=== PATIENT | male | born 1955 | race Caucasian/White ===

== ENCOUNTER 2021-08-02 00:38 | Emergency (ER) | payer MEDICARE, OTHER, SELFPAY ==
--- NOTE | ~2021-08-02 | CT_ITS ---
EXAMINATION: CT brain wo con EXAM DATE: 08/02/2021 03:04 INDICATION: Weakness. TECHNIQUE: Spiral CT of the head was performed without contrast. Axial, coronal and sagittal images were reviewed. The dose-length product (DLP) for this examination was 681.00 mGy-cm. The exposure w as tailored according to patient size, and iterative reconstruction (ASIR) was used as additional dos e reduction technique. There is no prior study for comparison. FINDINGS: There is no acute intraparenchymal hemorrhage. No evidence of intraparenchymal brain mass lesion. No evidence of acute infarction. Please note that initial head CT has limited sensitivity f or small or acute infarctions. There is an old right basal ganglia lacunar infarction extending to t he lateral ventricle. There is punctate old left thalamic lacunar infarction. There are old bilateral pontine lacunar infarctions. There is mild periventricular and subcortical hypodensity, nonspecific but probably related to small vessel ischemic disease. There is mild to moderate prominence of the sulci and ventricles related to cerebral atrophy. There is intracranial carotid arteriosclerosis. There are no extra-axial collections. There is no mass effect or midline shift. Patient has had zen ateral ocular lens surgery. Soft tissue is unremarkable. The visualized sinuses and mastoid air javy ls are well aerated. IMPRESSION: 1. Old small infarctions. 2. Chronic age related findings. Reviewed, dictated and finalized at location A. [employer]OR [employer]
--- NOTE | ~2021-08-02 | XR_ITS ---
EXAMINATION: XR chest 1V portable EXAM DATE: 08/02/2021 03:04 INDICATION: cough TECHNIQUE: Portable AP frontal chest x-ray was obtained. There is no prior study for comparison. FINDINGS: The lungs are clear. There are no pleural effusions. Cardiac silhouette is prominent but magnified on this AP technique. There is no pneumothorax suspected. The bones and soft tissues are unremarkable. IMPRESSION: No acute cardiopulmonary findings. Reviewed, dictated and finalized at location A. ICAL PUMPER
--- NOTE | 2021-08-02 00:43 | ED.WEAKNESS ---
HPI - Weakness General Chief complaint: Weakness Stated complaint: WEAKNESS Time Seen by Provider: 08/02/21 00:43 Source: patient History of Present Illness HPI Narrative: 66-year-old male with ex smoking, alcoholism, marijuana use, history of hypertension, anxiety /depression, dyslipidemia, CVA with left hemiplegia, dysphagia secondary to stroke, COVID vaccinated, ANGIE on CPAP presents to the ER for -- weakness since this afternoon -- cough and cold. the patient has chronic cough but his current cough appears to be different. It is nonproductive. -- to be evaluated for possible COVID infection as is and son are noted to have COVID infection. MD Complaint: generalized weakness Onset (ago): hour(s) ( 12 hours) Duration: constant Location: generalized Migration: none Severity: moderate Relieving factors: none Exacerbating factors: none Related Data Home Medications Medication Instructions Recorded Confirmed atorvastatin 40 mg PO DAILY 08/02/21 08/02/21 bupropion HCl 300 mg PO DAILY 08/02/21 08/02/21 clopidogrel 75 mg PO DAILY 08/02/21 08/02/21 escitalopram oxalate 20 mg PO DAILY 08/02/21 08/02/21 fenofibrate 160 mg PO DAILY 08/02/21 08/02/21 lisinopril 20 mg PO DAILY 08/02/21 08/02/21 Allergies Allergy/AdvReac Type Severity Reaction Status Date / Time No Known Allergies Allergy Verified 08/02/21 00:51 Review of Systems Review of Systems: All systems reviewed & are unremarkable except as noted in HPI and below Constitutional: Constitutional: Reports as per HPI and Reports no additional constitutional complaints Eyes: Eyes: Reports as per HPI and Reports no additional eye complaints ENT: Reports system reviewed and no additional complaints, except as documented Cardiovascular: Cardiovascular: Reports as per HPI and Reports no additional cardiovascular complaints Respiratory: Respiratory: Reports cough and Reports wheezing Gastrointestinal: Gastrointestinal: Reports as per HPI and Reports no additional gastrointestinal complaints Genitourinary: Genitourinary: Reports no additional male genitourinary complaints Musculoskeletal: Musculoskeletal: Reports no additional musculoskeletal complaints Integumentary/Breasts: Skin/Breast: Reports system reviewed and no additional complaints, except as docu Neurologic: Comments: history of left hemiplegia contractures of left upper and lower extremities Psychiatric: Psychiatric: Reports no additional psychiatric complaints Endocrine: Endocrine: Reports no additional endocrine complaints Hematologic/Lymphatic: Hematologic/Lymphatic: Reports no additional hematologic/lymphatic complaints Allergic/Immunologic: Allergic/Immunologic: Reports no additional allergic/immunologic complaints [facility] Past Medical History Medical History (Updated 08/02/21 @ 03:26 by Manfred Curz MD) CVA (cerebral vascular accident) Dyslipidemia Hypertension Left hemiplegia Social History Social History (Updated 08/02/21 @ 01:04 by Manfred Cruz MD) Social History: ex-smoker. Regular alcohol use. Marijuana use. Exam Const: General: no acute distress Limitations: altered mental status HENMT: Head: normal to inspection Ears: external ears normal ( Ears the full of wax.) Mouth: Yes moist mucous membranes Eyes: Conjunctivae: conjunctivae normal Pupils: Equal, round and reactive pupils present EOM: EOMs intact bilaterally Neck: Neck: normal visual inspection and no lymphadenopathy Other: bilateral parotid swelling. Chest: Chest palpation & inspection: normal inspection of the chest Resp: Auscultation: wheezes and diminished lung sounds Cardio: Rate: regular rate Rhythm: regular rhythm GI: GI Palp: Yes Soft to palpation : General: Yes no CVA tenderness Testes: Testes normal Skin: General skin exam: normal color Rashes: no rashes Neuro: General: no meningeal signs Other: Left hemiplegia. Extrem: General: normal to inspecti
--- NOTE | 2021-08-02 00:46 | ECG_ITS ---
Measurements Intervals [place] Rate: 81 P: -3 MN: 154 QRS: -24 QRSD: 138 T: 20 QT: 392 QTc: 456 Interpretive Statements SINUS RHYTHM RIGHT BUNDLE BRANCH BLOCK BASELINE ARTIFACT- I, II, III, AVR, AVL, AVF, V1-V6 ABNORMAL ECG Electronically Signed On 08-02-2021 8:04:49 ANALYTICAL DATA SCIENTIST by Kapil Bruno D.O.
[2021-08-02 01:04] VITALS: BP 130/68; PULSE 82; RESP 17; TEMP 37.2; O2SAT 97
[2021-08-02 01:06] LABS: Hematocrit 38.8 % (37.0-46.0); Hemoglobin 12.4 g/dL (12.4-15.3); Mean Corpuscular Hemoglobin 30.9 pg (27.0-31.0); Mean Corpuscular Volume 96.8 fL (78.0-102.0); Mean Platelet Volume 10.9 fl (8.7-11.0); Platelet Count Result 295 K/mm3 (150-420); Red Blood Count 4.01 M/mm3 (4.70-6.10); Red Cell Distribution Width 13.6 % (11.6-14.4); White Blood Count 5.8 K/mm3 (4.8-10.8)
[2021-08-02 01:23] LABS: INR 1.1; Partial Thromboplastin Time 28.8 SEC (23.90-30.70); Prothrombin Time 11.2 Seconds (9.50-12.10)
[2021-08-02 01:24] LABS: D Dimer 0.35 mg/L (0.19-0.50)
[2021-08-02 01:26] LABS: Total Cells Counted 100
[2021-08-02 01:27] LABS: Band Neutrophils Percent 0 % (0-6); Basophils Absolute Manual 0.11 K/mm3 (0-0.1); Basophils Percent Manual 2 % (0-1); Eosinophils Absolute Manual 0.05 K/mm3 (0.02-0.5); Eosinophils Percent Manual 1 % (1-6); Lymphocytes Absolute Manual 0.58 K/mm3 (1.1-4.5); Lymphocytes Percent Manual 10 % (18-44); Monocytes Absolute Manual 0.87 K/mm3 (0.1-0.90); Monocytes Percent Manual 15 % (3-9); Neutrophils Absolute Manual 4.17 K/mm3 (1.3-6.7); Neutrophils Percent Manual 72 % (46-73); Platelet Estimate Adequate (Adequate)
[2021-08-02 01:31] LABS: Alanine Aminotransferase 26 U/L (16-63); Albumin Level 3.3 g/dL (3.4-5.0); Alkaline Phosphatase 48 U/L (46-116); Anion Gap 5 mmol/L (8-16); Aspartate Amino Transferase 25 U/L (15-37); Bilirubin,Total 0.3 mg/dL (0.00-1.00); Blood Urea Nitrogen 19 mg/dL (7-18); Calcium 8.2 mg/dL (8.5-10.1); Carbon Dioxide 29 mmol/L (21-32); Chloride 102 mmol/L (98-108); Estimated CRCL calculation 52 ml/min; Estimated Glomerular Filt Rate 45; Glucose 104 mg/dL (70-99); NT Pro B Type Natriuretic Pept 169 pg/mL (0-125); Osmolality Calculated 284 mOsm/kg (285-295); Potassium 4.2 mmol/L (3.5-5.1); Sodium 136 mmol/L (136-145); Total Protein 6.6 g/dL (6.4-8.2)
[2021-08-02 01:34] LABS: Lactic Acid Reflex 1.1 mmol/L (0.4-2.0)
[2021-08-02 01:35] LABS: Ethanol 7 mg/dL (0-6)
[2021-08-02 01:35] LABS: Lipase 135 U/L (73-393); Troponin I 12.8 ng/L (0.00-60.4)
[2021-08-02] MEDS: methylPREDNISolone SOD SUCC 125 MG VIAL IM (01:36)
[2021-08-02] MEDS: ALBUTEROL SULFATE (*SP) INHALER 2 PUFF INHALATION (01:37)
[2021-08-02 01:39] VITALS: PULSE 97; RESP 19; O2SAT 96
[2021-08-02 01:45] VITALS: PULSE 84; RESP 18; O2SAT 96
[2021-08-02 01:45] LABS: SARS-CoV-2 RNA PCR Positive (Negative)
--- NOTE | 2021-08-02 03:22 | PC.NURSE ---
contacted pt's in order to inform her that the patient is being discharge and that she can pick him up.
[2021-08-02 03:46] VITALS: BP 124/78; PULSE 82; RESP 19; TEMP 36.6; O2SAT 93
== END 2021-08-02 04:09 | disposition home or self-care (01) ==
PROVIDERS: Emergency Provider Internal Medicine Critical Care Medicine; PCP Physician Assistant
DX: U07.1 COVID-19 (principal); N18.9 Chronic kidney disease, unspecified; J98.01 Acute bronchospasm; Z86.73 Personal history of transient ischemic attack (TIA), and cerebral infarction without residual deficits; Z79.899 Other long term (current) drug therapy; E78.5 Hyperlipidemia, unspecified; I10 Essential (primary) hypertension; Z87.891 Personal history of nicotine dependence
CPT/HCPCS: 36415; 70450; 71045; 80053; 80307; 83605; 83690; 83880; 84484; 85025; 85380; 85610; 85730; 93005; 96372; 99284; A9270; C9803; J2930; U0003; U0005

== ENCOUNTER 2021-08-21 14:10 | Emergency (ER) | payer MEDICARE, OTHER, SELFPAY ==
--- NOTE | ~2021-08-21 | CT_ITS ---
EXAMINATION: CT brain wo con DATE: 08/21/2021 15:04 INDICATION: Head injury TECHNIQUE: Computed tomography (CT) of the head was performed without intravenous contrast. Sagittal and coronal reconstructions were performed. The mA was adjusted according to patient size. Iterative reconstruction technique was employed. The dose-length product was 681.00 mGy-cm. COMPARISON: head CT dated 08/02/2021 FINDINGS: No fracture. No interval change in a few old lacunar infarcts, the largest in the anterior right basa l ganglia involving the lentiform nucleus, anterior limb of the internal capsule and head of the caud ate nucleus. Associated mild ex vacuo dilation of the anterior horn of the right lateral ventricle. T he additional smaller lacunar infarcts are at the left thalamus and bilateral anuj. No acute intracra nial hemorrhage, acute infarction or abnormal extra axial fluid collection. There is mild scattered w gypsy matter hypoattenuation consistent with chronic small vessel ischemic disease. Symmetric prominen ce of the sulci and ventricles consistent with mild to moderate age-appropriate diffuse cerebral volu me loss. No mass/mass effect. Changes of right intraocular lens replacement. The orbits are normal. U nchanged trace right mastoid effusion. IMPRESSION: 1. No fracture or acute intracranial process. 2. Stable appearance of small old lacunar infarcts at the right basal ganglia, left thalamus and bila teral anuj. 3. Age-related changes including mild to moderate diffuse volume loss and mild scattered white matter hypoattenuation consistent with chronic small vessel ischemic disease. Reviewed, dictated and finalized at location A. RNMENT AFFAIRS MANAGER IMPRESSION: 1. No fracture or acute intracranial process. 2. Stable appearance of small old lacunar infarcts at the right basal ganglia, left thalamus and bilateral anuj. 3. Age-related changes including mild to moderate diffuse volume loss and mild scattered white matter hypoattenuation consistent with chronic small vessel isc hemic disease.
--- NOTE | ~2021-08-21 | XR_ITS ---
EXAMINATION: XR forearm LT 2V DATE: 08/21/2021 15:20 INDICATION: Left forearm injury post fall with abrasion and swelling TECHNIQUE: AP an lateral views of the left forearm were obtained. COMPARISON: none FINDINGS: Posterior soft tissue swelling at the mid left forearm. Bone alignment is normal. No fracture. Mild o steoarthritis at the left wrist and elbow. Osteopenia. IMPRESSION: 1. 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 No acute osseous abnormality. Reviewed, dictated and finalized at location A. PIGMENT REDUCER IMPRESSION: 1. 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 No acute osseous abnormalit y.
[2021-08-21 14:22] VITALS: BP 130/78; PULSE 75; RESP 18; TEMP 36.5; O2SAT 95
--- NOTE | 2021-08-21 14:22 | ED.UPPEXIN ---
HPI - Extremity Injury (Upper) General Chief Complaint: Extremity Injury, Upper Stated Complaint: fall/broken arm Source: patient and EMS Mode of arrival: EMS Limitations: no limitations History of Present Illness HPI narrative: this is a 66-year-old with a history of stroke that affected his left side is a remote history he is currently on Plavix, history of hyperlipidemia and depression along with hypertension. The patient apparently while at home was trying to sit down and missed the seat and had a fall trapping his forearm causing a injury along with some abrasions and bruising to the left forearm, the patient is unsure of any injury to his head but believes that he was may have passed out. Otherwise the patient is comfortable with no pain elicited to his left forearm, no headaches no nausea vomiting no blurry vision no chest pain no shortness of breath and no other injuries. MD complaint: injury to: left and forearm Other Extremity Injury: Left: forearm ( bruising and abrasion) Other injuries: head Handedness: right Place: home Severity: mild Exacerbating factors: immobilization Related Data Home Medications Medication Instructions Recorded Confirmed atorvastatin 40 mg PO DAILY 08/02/21 08/02/21 bupropion HCl 300 mg PO DAILY 08/02/21 08/02/21 clopidogrel 75 mg PO DAILY 08/02/21 08/02/21 escitalopram oxalate 20 mg PO DAILY 08/02/21 08/02/21 fenofibrate 160 mg PO DAILY 08/02/21 08/02/21 lisinopril 20 mg PO DAILY 08/02/21 08/02/21 Allergies Allergy/AdvReac Type Severity Reaction Status Date / Time No Known Allergies Allergy Verified 08/21/21 14:31 Review of Systems Review of Systems: All systems reviewed & are unremarkable except as noted in HPI and below PMFSH Past Medical History Medical History CVA (cerebral vascular accident) Dyslipidemia Hypertension Left hemiplegia Social History Social History Social History: ex-smoker. Regular alcohol use. Marijuana use. Exam Const: General: no acute distress and alert Orientation/consciousness: patient oriented x3 HENMT: Head: normal to inspection Eyes: Conjunctivae: conjunctivae normal Pupils: Equal, round and reactive pupils present Direct Ophthalmoscopy: no photophobia Neck: Neck: normal visual inspection, no lymphadenopathy and no meningeal signs Resp: Effort & Inspection: normal respiratory effort Auscultation: clear to auscultation bilaterally Cardio: Rate: regular rate Rhythm: regular rhythm GI: GI Palp: Yes Soft to palpation Percussion: Yes normal to percussion : Testes: Testes normal Skin: General skin exam: normal color Wounds: wounds noted ( Abrasions and bruising to his left forearm) Neuro: General: patient oriented x3 Other: patient has a history of stroke and affected his left side patient has left-sided weakness arm and leg. Course Course Emergency Course: Patient updated with his tetanus, and CT scan of his brain and x-ray of the forearm reviewed. Critical Care Time Critical Care Time Critical Care Time: No Discharge Plan Discharge Clinical Impression: Abrasion Contusion Qualifiers: Encounter type: initial encounter Contusion area: forearm Laterality: left Qualified Code(s): S50.12XA - Contusion of left forearm, initial encounter Muscle strain of forearm Qualifiers: Encounter type: initial encounter Laterality: left Qualified Code(s): S56.912A - Strain of unspecified muscles, fascia and tendons at forearm level, left arm, initial encounter Patient Disposition: Home, Self-Care Condition: Stable Instructions: Antibiotic Form Additional Instructions: continue current medical regimen, follow-up with primary care physician for further evaluation treatment within 1 to 2 weeks. Prescriptions: No Action atorvastatin 40 mg tablet 40 mg PO DAILY RF: 0 lisinopril 20 mg tablet
[2021-08-21] MEDS: TETANUS,DIPHTHERIA,AC PERTUSSIS ADULT 0.5 ML (ADACEL) IM (15:47)
--- NOTE | 2021-08-21 15:50 | PC.NURSE ---
Pt left forearm cleaned up. No bleeding noted.
== END 2021-08-21 16:26 | disposition home or self-care (01) ==
PROVIDERS: Emergency Provider Emergency Medicine
DX: S50.12XA Contusion of left forearm, initial encounter (principal); S56.912A Strain of unspecified muscles, fascia and tendons at forearm level, left arm, initial encounter; W19.XXXA Unspecified fall, initial encounter; E78.5 Hyperlipidemia, unspecified; I10 Essential (primary) hypertension
CPT/HCPCS: 70450; 73090; 90471; 90715; 99284

== ENCOUNTER 2021-09-07 22:08 | Emergency (ER) | payer MEDICARE, OTHER, SELFPAY ==
--- NOTE | ~2021-09-07 | XR_ITS ---
XR chest 1V portable DATE: 09/07/2021 23:23 INDICATION: Dyspnea. Blood from nose. Vomiting brownish-black content. TECHNIQUE: Portable AP views on 09/07/2021 at 2316 hours COMPARISON: None FINDINGS: There is air beneath the diaphragm consistent with pneumoperitoneum, raising concern for ru ptured hollow abdominal viscus. There is some gas distended small bowel segments overlying the right abdomen. Minimal atelectasis is suggested at the lung bases. The lungs otherwise appear clear. Normal heart size. No hilar or mediastinal enlargement. No pleural effusion or pulmonary vascular con gestion, pneumothorax or pneumomediastinum is evident. IMPRESSION: Intraperitoneal free air suggesting ruptured hollow abdominal viscus; if there has been n o recent abdominal surgery, emergency surgical consultation is recommended. Small bowel gaseous distention Minimal bibasilar atelectasis is suggested Dr. Grimm telephoned the findings including pneumoperitoneum and suspected ruptured hollow abdominal v iscus on 09/07/2021 at 2328 hours to emergency room physician Dr. Jackson. He indicated there has bee n no recent abdominal surgery. Reviewed, dictated and finalized at location A. IMPRESSION: Intraperitoneal free air suggesting ruptured hollow abdominal viscu s; if there has been no recent abdominal surgery, emergency surgical consultati on is recommended. Small bowel gaseous distention Minimal bibasilar atelectasis is suggested Dr. Grimm telephoned the findings including pneumoperitoneum and suspected ruptu red hollow abdominal viscus on 09/07/2021 at 2328 hours to emergency room physic dragan Dr. Jackson. He indicated there has been no recent abdominal surgery.
--- NOTE | ~2021-09-07 | XR_ITS ---
XR abdomen/kub 1V DATE: 09/07/2021 23:23 INDICATION: Blood from nose. Vomiting brownish-black fluid. Dyspnea. TECHNIQUE: 2 portable supine AP views on 09/07/2021 at 2319 hours COMPARISON: None FINDINGS: There is prominent gaseous dilatation of the stomach and small bowel and relative evacuatio n of the colon, suggesting mid to distal small bowel obstruction. Intraperitoneal free air is distributed to better advantage on the semiupright portable AP chest perf ormed at 2316 hours. IMPRESSION: Suspected mid to distal small bowel obstruction at or ruptured hollow abdominal viscus wi th pneumoperitoneum Emergency surgical consultation is recommended. Reviewed, dictated and finalized at Location A. Reviewed, dictated and finalized at location A. IMPRESSION: Suspected mid to distal small bowel obstruction at or ruptured clara ow abdominal viscus with pneumoperitoneum Emergency surgical consultation is recommended.
[2021-09-07 22:25] VITALS: BP 130/95; PULSE 123; RESP 37; TEMP 36.3; O2SAT 91
--- NOTE | 2021-09-07 22:25 | PC.NURSE ---
pt belching and spitting up small amounts of brown fluid. pt has emesis bag.
--- NOTE | 2021-09-07 22:25 | ED.NAVMDI ---
HPI - Nausea/Vomiting/Diarrhea General Chief complaint: Nausea/Vomiting/Diarrhea Stated complaint: AMB Time Seen by Provider: 09/07/21 22:25 History of Present Illness HPI Narrative: 66-year-old male patient is brought to the ER by the EMS from his residence with complaints of nausea vomiting and diarrhea since the last 3 days. The states that she contacted the primary care provider on Monday and the patient was started on Tamiflu after a tele health visit. Patient has had persistent vomiting and diarrhea and also lack of appetite. He has tried to eat something but unable to keep it down. No fever or chills reported. The patient does not complain about any chest pain or shortness of breath. Past medical history is positive for us CVA in 2005 with left-sided hemiplegia however the patient has regained some function of the left side. According to the the patient had COVID a month ago. Per old records the patient has chronic cough and history of chronic smoking and alcoholism. Related Data Home Medications Medication Instructions Recorded Confirmed atorvastatin 40 mg PO DAILY 08/02/21 08/21/21 bupropion HCl 300 mg PO DAILY 08/02/21 08/21/21 clopidogrel 75 mg PO DAILY 08/02/21 08/21/21 escitalopram oxalate 20 mg PO DAILY 08/02/21 08/21/21 fenofibrate 160 mg PO DAILY 08/02/21 08/21/21 lisinopril 20 mg PO DAILY 08/02/21 08/21/21 Allergies Allergy/AdvReac Type Severity Reaction Status Date / Time No Known Allergies Allergy Verified 08/21/21 14:31 Review of Systems Review of Systems: All systems reviewed & are unremarkable except as noted in HPI and below Constitutional: Constitutional: Reports fatigue and Reports weakness Eyes: Eyes: Reports no additional eye complaints ENT: Reports system reviewed and no additional complaints, except as documented Cardiovascular: Cardiovascular: Reports no additional cardiovascular complaints, Denies chest pain and Denies radiating jaw, neck or arm pain Respiratory: Respiratory: Reports cough and Reports dyspnea Comments: cough and shortness of breath started tonite per Gastrointestinal: Gastrointestinal: Reports diarrhea and Reports vomiting Genitourinary: Genitourinary: Reports no additional male genitourinary complaints Musculoskeletal: Musculoskeletal: Reports no additional musculoskeletal complaints Neurologic: Reports system reviewed and no additional complaints, except as documented [facility] Past Medical History Medical History CVA (cerebral vascular accident) Dyslipidemia Hypertension Left hemiplegia Social History Social History Social History: ex-smoker. Regular alcohol use. Marijuana use. Exam Narrative: Patient appears acutely ill and is in moderate to severe discomfort. Vital signs are noted to be positive for a blood pressure of 103/74. Patient is afebrile. SpO2 is 97% with supplemental oxygen and respiratory rate has been between 36-47. HEENT: for normocephalic head. Pupils are midsize and equal and reactive. Oral mucous membranes are moist and the patient is spitting up liquid brown stuff constantly. Breath sounds are audible bilaterally and are associated with loud audible rhonchi and some retractions as well. Heart tones are rapid. Abdomen is distended and hyper-resonant and no bowel sounds are heard. There is some tenderness that is diffuse all over the abdomen. Rectal examination has been deferred. Extremities are atraumatic. Skin is diaphoretic. Warm to touch Patient is very anxious. Patient is alert and oriented to time place and person. His speech is slightly slurred from his prior stroke. There is no obvious motor or sensory deficit at this time. Course Course Emergency Course: Patient's condition remains unchanged and he is more comfortable as the time goes by. He continues to spit up the brown liq
[2021-09-07 22:28] VITALS: O2SAT 96
--- NOTE | 2021-09-07 22:33 | ECG_ITS ---
Measurements Intervals [place] Rate: 136 P: 25 [place]: 142 QRS: 9 QRSD: 112 T: 23 QT: 320 QTc: 481 Interpretive Statements SINUS TACHYCARDIA WITH OCCASIONAL SUPRAVENTRICULAR PREMATURE COMPLEXES CANNOT RULE OUT INFERIOR MYOCARDIAL INFARCTION , PROBABLY OLD BASELINE ARTIFACT ANTEROLATERAL ST DEPRESSION, CONSIDER SUBENDOCARDIAL INJURY [0.1+ mV ST DEPRESSION] ABNORMAL ECG COMPARED TO ECG 08/02/2021 01:13:07 [address] NOW PRESENT [address] DEPRESSIONS ARE NEW Electronically Signed On 09-08-2021 8:38:47 CDT by Sina Kraus M.D.
--- NOTE | 2021-09-07 22:55 | PC.NURSE ---
Attempted to place NG tube. two unsuccessful attempts by two different RN's and one unsuccessful attempt by MD Vidales.
[2021-09-07 22:57] LABS: Hematocrit 53.6 % (37.0-46.0); Hemoglobin 17.5 g/dL (12.4-15.3); Immature Platelet Fraction Pct 4.5 % (1.0-7.0); Mean Corpuscular HGB Conc 32.6 g/dL (32.0-36.0); Mean Corpuscular Hemoglobin 31.5 pg (27.0-31.0); Mean Corpuscular Volume 96.4 fL (78.0-102.0); Mean Platelet Volume 11.2 fl (8.7-11.0); Platelet Count Result 544 K/mm3 (150-420); Red Blood Count 5.56 M/mm3 (4.70-6.10); Red Cell Distribution Width 14.2 % (11.6-14.4)
[2021-09-07 22:59] LABS: White Blood Count 20.3 K/mm3 (4.8-10.8)
--- NOTE | 2021-09-07 23:00 | PC.NURSE ---
pt having multiple incidents of small emeses of brown liquid.
[2021-09-07 23:10] LABS: Band Neutrophils Percent 5 % (0-6); Basophils Percent Manual 0 % (0-1); Eosinophils Percent Manual 0 % (1-6); Lymphocytes Absolute Manual 0.81 K/mm3 (1.1-4.5); Lymphocytes Percent Manual 4 % (18-44); Monocytes Absolute Manual 1.62 K/mm3 (0.1-0.90); Monocytes Percent Manual 8 % (3-9); Neutrophils Absolute Manual 17.86 K/mm3 (1.3-6.7); Neutrophils Percent Manual 83 % (46-73); Platelet Estimate Increased (Adequate); Total Cells Counted 100
[2021-09-07 23:12] LABS: Alanine Aminotransferase 22 U/L (16-63); Albumin Level 4.2 g/dL (3.4-5.0); Alkaline Phosphatase 55 U/L (46-116); Anion Gap 18 mmol/L (8-16); Aspartate Amino Transferase 19 U/L (15-37); Bilirubin,Total 0.4 mg/dL (0.00-1.00); Blood Urea Nitrogen 61 mg/dL (7-18); Calcium 9.3 mg/dL (8.5-10.1); Carbon Dioxide 24 mmol/L (21-32); Chloride 98 mmol/L (98-108); D Dimer 1.42 mg/L (0.19-0.50); Estimated Glomerular Filt Rate 15; Glucose 175 mg/dL (70-99); Lipase 156 U/L (73-393); Magnesium 2.1 mg/dL (1.8-2.4); Osmolality Calculated 311 mOsm/kg (285-295); Potassium 3.4 mmol/L (3.5-5.1); Sodium 140 mmol/L (136-145); Total Protein 9.1 g/dL (6.4-8.2); Troponin I 46.7 ng/L (0.00-60.4)
[2021-09-07 23:19] LABS: Lactic Acid Reflex 5.5 mmol/L (0.4-2.0)
[2021-09-07] MEDS: IPRATROPIUM 0.5 MG/ALBUTEROL SULFATE 2.5 MG AMPUL.NEB 3 ML INHALATION (23:20)
[2021-09-07 23:21] VITALS: PULSE 142; RESP 36; O2SAT 97
[2021-09-07] MEDS: SODIUM CHLORIDE 0.9% IV 1,000 ML 500 ML IV CONT (23:22)
--- NOTE | 2021-09-07 23:29 | PC.NURSE ---
SALVATORE Price placed call to [facility] sal[facility] for pt transfer
[2021-09-07 23:45] VITALS: O2SAT 96
--- NOTE | 2021-09-07 23:52 | PC.NURSE ---
this staff member at pt's bedside when pt started vomiting increased amounts of brown liquid. this staff member began suctioning pt's. pt responding to this staff member by nodding head. this staff member called for additional staff and ER doctor for assistance. Suctioning continuing.
--- NOTE | 2021-09-07 23:55 | PC.NURSE ---
pt became unresponsive. Md Vidales and this staff member at bedside. CPR initiated. Code paged at [id number] by SALVATORE Price. See code sheet.
--- NOTE | 2021-09-08 00:30 | PC.NURSE ---
a total of 500ml of brown fluid was suctioned from the patient.
--- NOTE | 2021-09-08 01:25 | PC.NURSE ---
pt family provide home information and signed release of body form.
--- NOTE | 2021-09-08 02:03 | PC.NURSE ---
Master Majano from [facility] home on site to pickup pt. Release of body form signed.
[2021-09-08 02:04] LABS: Reflex Lactic Acid Yes or No Add Lactic
== END 2021-09-08 02:10 | disposition expired ==
PROVIDERS: Emergency Provider Emergency Medicine; PCP Physician Assistant
DX: K63.1 Perforation of intestine (nontraumatic) (principal); K56.609 Unspecified intestinal obstruction, unspecified as to partial versus complete obstruction; A41.9 Sepsis, unspecified organism; I46.9 Cardiac arrest, cause unspecified; E78.5 Hyperlipidemia, unspecified; I10 Essential (primary) hypertension
CPT/HCPCS: 36415; 71045; 74018; 80053; 83605; 83690; 83735; 84484; 85025; 85055; 85380; 87040; 92950; 93005; 94640; 96365; 99285; J2543; J7030